=== PATIENT | male | born 1990 | race African-American/Black ===

== ENCOUNTER 2023-11-01 12:58 | Emergency (ER) | payer MEDICAID ==
[~2023-11-01] VITALS: Ht 182.9 cm; Wt 87.0 kg
[2023-11-01 13:08] VITALS: O2SAT 100
[2023-11-01 14:19] LABS: CHLORIDE 106 mEq/L (98-107); SODIUM 138 mEq/L (136-145)
[2023-11-01 14:20] LABS: CARBON DIOXIDE 29 mEq/L (21-32)
[2023-11-01 14:21] LABS: BASOPHILS % 0.5 % (0.0-2.0); CALCIUM 9.7 mg/dL (8.7-10.4); EOSINOPHILS % 0.9 % (0.0-5.0); HEMATOCRIT. 46.7 % (42.0-52.0); HEMOGLOBIN. 16.1 g/dL (14.0-18.0); LYMPHOCYTES % 24.5 % (20.0-50.0); MEAN CORPUSCULAR HEMOGLOBIN 31.9 pg (28.0-32.0); MEAN CORPUSCULAR HGB CONC 34.6 g/dL (31.0-37.0); MEAN CORPUSCULAR VOLUME 92.4 fL (80.0-94.0); MEAN PLATELET VOLUME 7.3 fl (7.4-10.4); MONOCYTES % 11.7 % (2.0-8.0); NEUTROPHILS % 62.4 % (40.0-76.0); PLATELET 277 x1000/uL (130-400); RED BLOOD CELL COUNT 5.05 mill/uL (4.7-6.1); RED CELL DISTRIBUTION WIDTH 13.5 % (11.6-14.6); WHITE BLOOD COUNT 7.2 x1000/uL (4.5-11.0)
[2023-11-01 14:25] LABS: CREATININE 1.1 mg/dL (0.6-1.3); GLUCOSE 95 mg/dL (70-105); UREA NITROGEN BLOOD 5 mg/dL (9-23)
[2023-11-01 14:27] LABS: ALANINE AMINOTRANSFERASE 42 IU/L (10-49); ASPARTATE AMINOTRANSFERASE 36 IU/L (<34); BILIRUBIN DIRECT 0.2 mg/dL (<=3.0)
[2023-11-01 14:28] LABS: BILIRUBIN TOTAL 0.5 mg/dL (0.1-1.0)
[2023-11-01] MEDS: FAMOTIDINE 20MG/2ML VIAL IV ONE (15:44)
[2023-11-01] MEDS: ONDANSETRON HCL 4MG/2ML INJ IV ONE (15:44)
[2023-11-01] MEDS: KETOROLAC 30MG/ML VIAL IV ONE (15:45)
[2023-11-01] MEDS: SODIUM CHLORIDE 0.9% 1,000 ML IV ONE (16:14)
[2023-11-01] MEDS: DICYCLOMINE HCL 10MG/ML 2ML VIAL IM ONE (16:14)
[2023-11-01 17:06] VITALS: BP 119/73; PULSE 63; RESP 16; TEMP 36.78072; O2SAT 100
== END 2023-11-01 17:13 | disposition home or self-care (01) ==
LOC: ER 12:58
DX: R11.15 Cyclical vomiting syndrome unrelated to migraine (principal)
CPT/HCPCS: 99284; 96374; 96375; 96361; 80076; 80048; 83690; 85025; 86850; 86900; 86901; 36415; 96372; J0500; J3490; J1885; J2405; J7030

== ENCOUNTER 2024-01-07 16:57 | Emergency (ER) | payer MEDICAID ==
[~2024-01-07] VITALS: Ht 182.9 cm; Wt 80.0 kg
[2024-01-07 16:59] VITALS: BP 143/89; O2SAT 98
[2024-01-07 17:00] VITALS: PULSE 80; RESP 18; O2SAT 99
[2024-01-07 21:01] VITALS: TEMP 97.9
[2024-01-07] MEDS: ACETAMINOPHEN 325MG TABLET PO ONE (21:01)
[2024-01-07] MEDS: LIDOCAINE HCL/PF 1% 10 MG/ML 5ML VIAL INFIL ONE (21:01)
[2024-01-07] MEDS: BACITRACIN ZINC OINT UDPKT TOP ONE (21:01)
[2024-01-07] MEDS: TETANUS, DIPHTHERIA, PERTUSSIS VAC/PF 0.5ML (>10YR OLD) IM ONE (21:32)
== END 2024-01-07 21:56 | disposition home or self-care (01) ==
LOC: ER 16:57
DX: S01.511A Laceration without foreign body of lip, initial encounter (principal); W18.39XA Other fall on same level, initial encounter; Y93.89 Activity, other specified; Y92.89 Other specified places as the place of occurrence of the external cause; Y99.8 Other external cause status
CPT/HCPCS: 40650; 99284; 90715; 90471; J3490